=== PATIENT | female | born 1980 | race Caucasian/White ===

== ENCOUNTER → 2019-06-26 | Outpatient (CLI) | payer OTHER | LOC: M.RAD 10:31 | DX: M17.12 Unilateral primary osteoarthritis, left knee (principal); M25.862 Other specified joint disorders, left knee ==

== ENCOUNTER 2021-01-19 18:25 | Emergency (ER) | payer OTHER ==
[~2021-01-19] VITALS: Ht 175.3 cm; Wt 77.1 kg
[2021-01-19] MEDS ORDERED: MEDROLDOSEPACK PO (22:43)
[2021-01-19] MEDS ORDERED: FLEXERIL PO (22:43)
[2021-01-19] MEDS ORDERED: TRAMADOL 50 MG50 MG PO (22:43)
[2021-01-19 23:10] VITALS: BP 144/89
== END 2021-01-19 23:10 | disposition home or self-care (01) ==
LOC: M.ERS 18:25
DX: M54.12 Radiculopathy, cervical region (principal)